=== PATIENT | female | born 1965 | race Two or more races ===

== ENCOUNTER 2017-11-30 20:00 | Emergency (ER) | payer OTHER ==
[~2017-11-30] VITALS: Ht 172.7 cm; Wt 59.9 kg
[2017-12-01] MEDS ORDERED: LEVSIN/SL0.125 MG SL ×2 (01:13)
[2017-12-01] MEDS ORDERED: CIPRO500 MG PO (01:13)
== END 2017-12-01 01:32 ==
LOC: ER 20:00
DX: N39.0 Urinary tract infection, site not specified (principal); R10.2 Pelvic and perineal pain

== ENCOUNTER 2022-04-15 12:23 | Emergency (ER) | payer OTHER ==
[~2022-04-15] VITALS: Ht 175.3 cm; Wt 86.2 kg
[~2022-04-15 12:23] MED LIST: CIPRO500 MG PO; LEVSIN/SL0.125 MG SL
== END 2022-04-15 19:05 | disposition home or self-care (01) ==
LOC: ER 12:23
DX: S93.402A Sprain of unspecified ligament of left ankle, initial encounter (principal); W18.30XA Fall on same level, unspecified, initial encounter; Y93.9 Activity, unspecified; Y92.009 Unspecified place in unspecified non-institutional (private) residence as the place of occurrence of the external cause

== ENCOUNTER 2023-03-12 09:14 | Outpatient (CLI) | payer OTHER | END 2023-03-12 09:21 | disposition home or self-care (01) | LOC: SONOGRAMA 09:14 | PROVIDERS: ATTEND Specialist | DX: E06.3 Autoimmune thyroiditis (principal) ==

== ENCOUNTER 2023-04-01 08:06 | Outpatient (CLI) | payer OTHER | END 2023-04-01 08:14 | disposition home or self-care (01) | LOC: NUCLEAR 08:06 | PROVIDERS: ATTEND Specialist | DX: I87.2 Venous insufficiency (chronic) (peripheral) (principal) ==

== ENCOUNTER 2024-07-14 09:12 | Outpatient (CLI) | payer OTHER | END 2024-07-14 09:19 | disposition home or self-care (01) | LOC: SONOGRAMA 09:12 | PROVIDERS: ATTEND Specialist | DX: E11.21 Type 2 diabetes mellitus with diabetic nephropathy (principal); N39.0 Urinary tract infection, site not specified ==

== ENCOUNTER 2024-12-03 15:27 | Emergency (ER) | payer OTHER ==
[~2024-12-03] VITALS: Ht 172.7 cm; Wt 68.9 kg
[2024-12-03 18:42] LABS: HEMATOCRIT 40.3 % (36.0-45.00); HEMOGLOBIN 13.9 g/dL (12.0-15.00); MEAN CELL VOLUME 87.9 fL (80.00-100.00); MEAN CORPUSCULAR HEMOGLOBIN 30.3 pg (27.00-32.0); MEAN CORPUSCULAR HGB CONC 34.4 g/dl (32.0-36.0); PLATELET COUNT 285 K/uL (150-450); RED BLOOD COUNT 4.59 M/uL (4.00-6.00); RED CELL DISTRIBUTION WIDTH 12.8 % (11.5-14.5)
[2024-12-03 19:12] LABS: CALCIUM 9.5 mg/dL (8.5-10.1); CREATININE SERUM 1.05 mg/dL (0.55-1.02); GFR 53.64; POTASSIUM 4.43 mEq/L (3.5-5.1)
[2024-12-03] MEDS ORDERED: NORFLEX100MG PO (23:27)
[2024-12-03] MEDS ORDERED: KETO10TA2 PO (23:28)
== END 2024-12-04 00:42 | disposition left against medical advice (07) ==
LOC: ER 15:30
PROVIDERS: General Practice
DX: M54.2 Cervicalgia (principal); R68.84 Jaw pain
CPT/HCPCS: 36415; 70491; Q9965

== ENCOUNTER 2024-12-24 08:42 | Outpatient (CLI) | payer OTHER ==
[~2024-12-24 08:42] MED LIST changes: +KETO10TA2 PO; +NORFLEX100MG PO
== END 2024-12-24 08:58 | disposition home or self-care (01) ==
LOC: TOM 08:42
PROVIDERS: ATTEND Specialist
DX: K57.92 Diverticulitis of intestine, part unspecified, without perforation or abscess without bleeding (principal)